=== PATIENT | female | born 2000 | race Caucasian/White ===

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

== ENCOUNTER 2021-01-22 16:31 | Emergency (ER) | payer SELFPAY ==
[~2021-01-22] VITALS: Ht 180.3 cm; Wt 113.6 kg
[~2021-01-22 16:31] MED LIST changes: +PERCOCET 325 MG1 TA2 PO; +ZOFRAN ODT4 MG PO
[2021-01-22 17:09] VITALS: TEMP 98.8
[2021-01-22] MEDS ORDERED: PERIDEX (CHLOR480 ML MM (18:15)
[2021-01-22] MEDS ORDERED: AMOXICILLIN 50500 MG PO (18:15)
[2021-01-22 18:17] VITALS: BP 144/78; PULSE 76
== END 2021-01-22 18:17 | disposition home or self-care (01) ==
LOC: COL.ER 16:31
DX: K05.6 Periodontal disease, unspecified (principal); K06.9 Disorder of gingiva and edentulous alveolar ridge, unspecified; F17.200 Nicotine dependence, unspecified, uncomplicated; Z98.890 Other specified postprocedural states